=== PATIENT | female | born 1950 | race Caucasian/White ===

== ENCOUNTER 2019-01-20 06:43 | Day surgery (SDC) | payer MEDICARE, BC ==
[~2019-01-20 06:43] MED LIST: Bupivacaine 0.5% 30 ML SDV ONE; Lidocaine 1% 30 ML SDV ONE
[2019-01-20] MEDS ORDERED: Propofol 200 MG/20 ML SDV IV ONE (06:44)
[2019-01-20] MEDS ORDERED: Bupivacaine 0.5% 30 ML SDV INJECT ONE (06:44)
[2019-01-20] MEDS ORDERED: Midazolam 1 MG/ML 2 ML SDV IV ONE (06:44)
[2019-01-20] MEDS ORDERED: fentaNYL 100 MCG/2 ML SDV IV ONE (06:44)
[2019-01-20] MEDS ORDERED: Ondansetron 4 MG/2 ML SDV IV ONE (06:44)
[2019-01-20] MEDS ORDERED: Lactated Ringers 1,000 ML IV SCH (07:00)
[2019-01-20] MEDS ORDERED: Sodium Chloride 0.9% 10 ML Syringe FLUSH PRN ×2 (07:00)
[2019-01-20] MEDS ORDERED: Bupivacaine 0.5% 30 ML SDV ONE (07:29)
[2019-01-20] MEDS ORDERED: Lidocaine 1% 30 ML SDV ONE (07:29)
[2019-01-20] MEDS ORDERED: Lidocaine 1% 30 ML SDV INJECT ONE ×2 (08:36→09:10)
[2019-01-20] MEDS ORDERED: ceFAZolin 2 GM in Premix Bag 1 BAG IV ONE (09:00)
[2019-01-20] MEDS ORDERED: Acetaminophen/oxyCODONE 325-5 MG Tab PO PRN (09:44)
--- NOTE | 2019-01-20 09:46 | PCM.OPNOTE ---
- General Post-Op/Procedure Note Date of Surgery/Procedure: 01/20/19 Operative Procedure(s): left foot great toe cyst excision with bone shaving Pre Op Diagnosis: left foot great toe mucoid cyst Post-Op Diagnosis: stormy Anesthesia Technique: Local, MAC Primary Surgeon: Judy Rose Anesthesia Provider: Alan Gastelum Pathology: great toe cyst EBL in mLs: 5 Complications: none Condition: Good Free Text/Narrative:: Pt tolerated procedure well and was transported to recovery with vascular status intact to left great toe. Well padded dressing applied.
--- NOTE | 2019-01-21 13:26 | OR ---
DATE: 01/20/2019 PREOPERATIVE DIAGNOSIS: Left foot mucoid cyst of the great toe. POSTOPERATIVE DIAGNOSIS: Left foot mucoid cyst of the great toe. PROCEDURE PERFORMED: Left foot great toe cyst excision and bone shaving. ANESTHESIA: Local MAC with preoperative local block of 10 mL 1:1 mixture of 1% lidocaine plain and 0.5% Marcaine plain. TOURNIQUET TIME: 30 minutes, pneumatic ankle tourniquet. ESTIMATED BLOOD LOSS: Minimal. SPECIMEN REMOVED: Left ptosis. COMPLICATIONS: None. INDICATIONS: Amna is a 68-year-old female who presents with a recurring cyst on her left great toe. I have removed it in the office twice, but it continues to grow back and it is painful for her causing burning and shooting pain up her foot. The patient voiced good understanding of proposed procedure and possible complications and elects to have surgery at this time. DESCRIPTION OF PROCEDURE: The patient was taken to the operating room lying in supine position. After adequate anesthesia induction as described above, the left foot was prepped and draped in usual sterile fashion. A pneumatic ankle tourniquet was inflated to 225 mmHg. Attention was then directed to the medial aspect of the left great toe where the cyst was present. A semi-elliptical converting incision was made overlying the cyst in a way that it ellipsed out the entire cyst. Sharp and blunt dissection were performed down to the level of the first interphalangeal joint where I did follow the stalk of the cyst down to that joint. The cyst was sent to pathology. The capsule was opened, and a rongeur was used to remove some mild spurring in the area and a bone rasp was used to rasp down the medial aspect of the first interphalangeal joint down to good bleeding bone so that capsule will hear back to the bone. The area was then irrigated with copious amounts of sterile saline. I made sure that all cyst sac was removed. A 3-0 Vicryl was used to repair the capsule, and the incision was closed with 4-0 nylon. The area was dressed with Xeroform to the incision site, fluffs, Webril, and an Monty wrap. She was placed in a postoperative shoe. The patient tolerated the procedure and anesthesia well and left the operating room for recovery with vital signs stable and vascular status intact to the left foot as noted by immediate hyperemia upon deflation of the ankle tourniquet. The patient was then discharged home when she met hospital discharge requirements. [facility] /[id number]
== END 2019-01-20 11:00 | disposition home or self-care (01) ==
LOC: DL.SDS 06:43
PROVIDERS: ATTEND Podiatrist
DX: M85.672 Other cyst of bone, left ankle and foot (principal); M25.775 Osteophyte, left foot; L90.5 Scar conditions and fibrosis of skin; M85.80 Other specified disorders of bone density and structure, unspecified site; K21.9 Gastro-esophageal reflux disease without esophagitis; Z79.899 Other long term (current) drug therapy
CPT/HCPCS: 01480; 28092; 28108; J0690; J2001; J2250; J2405; J2704; J3010; J3490; J7120